=== PATIENT | male | born 1965 | race Caucasian/White ===

== ENCOUNTER 2019-11-01 19:10 | Emergency (ER) | payer MEDICAID, OTHER ==
[~2019-11-01] VITALS: Ht 172.7 cm; Wt 64.5 kg
[2019-11-01] MEDS ORDERED: LIDOcaine 1% W/epiNEPHrine 1:200,000 10ml vial IJ ONE (20:20)
[2019-11-01] MEDS ORDERED: TETanus/Pertussis (Acell)/Diphther VAC/PF (Tdap-Adult) 0.5ml syringe IMVAC ONE (20:20)
[2019-11-01] MEDS ORDERED: bacitracin 15gm ointment TP ONE (20:20)
--- NOTE | 2019-11-01 20:42 | NUR ---
LACERACTION SET UP AT BEDSIDE ORDER
--- NOTE | 2019-11-01 20:43 | NUR ---
PIPE TURNER AT BEDSIDE IRRIGATING WOUND WITH NORMAL SALINE . TETINUS GIVEN TO THE RIGHT DELTOID
[2019-11-01 21:42] VITALS: BP 146/82
== END 2019-11-01 21:25 | disposition home or self-care (01) ==
LOC: ER 19:10
DX: S81.812A Laceration without foreign body, left lower leg, initial encounter (principal); I10 Essential (primary) hypertension; X08.8XXA Exposure to other specified smoke, fire and flames, initial encounter; Y93.89 Activity, other specified; Y92.89 Other specified places as the place of occurrence of the external cause; Y99.8 Other external cause status
CPT/HCPCS: 12001; 90471; 90715; 99283

== ENCOUNTER 2020-12-08 22:35 | Emergency (ER) | payer MEDICAID ==
[~2020-12-08] VITALS: Ht 172.7 cm; Wt 65.9 kg
[2020-12-08 22:38] VITALS: BP 194/110
[2020-12-08] MEDS ORDERED: LIDOcaine 1% W/epiNEPHrine 1:200,000 10ml vial IJ ONE (22:55)
[2020-12-08] MEDS ORDERED: TETanus/Pertussis (Acell)/Diphther VAC/PF (Tdap-Adult) 0.5ml syringe IMVAC ONE (22:55)
[2020-12-08] MEDS ORDERED: LIDOcaine 1% W/epiNEPHrine 1:100,000 20ml vial IJ ONE (23:00)
== END 2020-12-09 00:14 | disposition home or self-care (01) ==
LOC: ER 22:36
DX: S61.512A Laceration without foreign body of left wrist, initial encounter (principal); I10 Essential (primary) hypertension; Z98.890 Other specified postprocedural states; W45.8XXA Other foreign body or object entering through skin, initial encounter; Y93.89 Activity, other specified; Y92.89 Other specified places as the place of occurrence of the external cause; Y99.8 Other external cause status
CPT/HCPCS: 12002; 99282

== ENCOUNTER 2020-12-21 21:03 | Emergency (ER) | payer MEDICAID ==
[~2020-12-21] VITALS: Ht 172.7 cm; Wt 76.0 kg
[2020-12-21 21:08] VITALS: BP 166/101
[2020-12-21] MEDS ORDERED: DOXY100C76 PO (21:14)
--- NOTE | 2020-12-21 21:15 | NUR ---
SUTURES REMOVED X4
== END 2020-12-21 21:29 | disposition home or self-care (01) ==
LOC: ER 21:04
DX: S61.211D Laceration without foreign body of left index finger without damage to nail, subsequent encounter (principal); I10 Essential (primary) hypertension; Z98.890 Other specified postprocedural states; Z79.2 Long term (current) use of antibiotics; X58.XXXD Exposure to other specified factors, subsequent encounter
CPT/HCPCS: 99283

== ENCOUNTER 2021-04-10 21:30 | Emergency (ER) | payer MEDICAID, OTHER ==
[~2021-04-10] VITALS: Ht 172.7 cm; Wt 68.2 kg
[2021-04-10 22:55] LABS: BASOPHILS % (AUTO) 0.3 % (0-1); EOSINOPHILS # (AUTO) 0.1 X10'3 (0-0.9); EOSINOPHILS % (AUTO) 1.1 % (0-6); HEMATOCRIT 44.3 % (42.0-52.0); HEMOGLOBIN 15.2 g/dl (14.0-17.9); LYMPHOCYTES # (AUTO) 0.3 X10'3 (1.1-4.8); LYMPHOCYTES % (AUTO) 6.5 % (21-51); MEAN CORPUSCULAR HEMOGLOBIN 31.4 PG (27.0-31.0); MEAN CORPUSCULAR HGB CONC 34.4 g/dL (33.0-36.5); MEAN CORPUSCULAR VOLUME 91.2 FL (78-98); MEAN PLATELET VOLUME 7.9 FL (7.4-10.4); MONOCYTES # (AUTO) 0.8 X10'3 (0-0.9); NEUTROPHILS # (AUTO) 3.5 X10'3 (1.8-7.7); NEUTROPHILS % (AUTO) 74.1 % (42-75); PLATELET COUNT 157 X10'3 (140-440); RED BLOOD COUNT 4.86 X10'6 (4.70-6.10); RED CELL DISTRIBUTION WIDTH 13.5 % (11.5-14.5); WHITE BLOOD COUNT 4.7 X10'3 (4.5-11.0)
[2021-04-10 23:00] LABS: ALBUMIN 3.8 G/DL (3.4-5.0); ANION GAP 8 (8-16); BLOOD UREA NITROGEN 17 MG/DL (7-18); BUN/CREATININE RATIO 15.9 (5.4-32.0); CALCIUM 8.9 MG/DL (8.5-10.1); CHLORIDE 100 MMOL/L (99-107); CREATININE 1.07 MG/DL (0.60-1.10); GLUCOSE 137 MG/DL (70-104); POTASSIUM 4.3 MMOL/L (3.5-5.1); SODIUM 136 MMOL/L (135-145); TOTAL CARBON DIOXIDE 27.9 MMOL/L (24-32); eGFR 72 ML/MIN
[2021-04-10 23:28] LABS: PLATELET ESTIMATE NORMAL; TOTAL CELLS COUNTED 100
[2021-04-10 23:38] VITALS: BP 156/97
== END 2021-04-10 23:42 | disposition home or self-care (01) ==
LOC: ER 21:32
DX: B34.9 Viral infection, unspecified (principal); Z20.822 Contact with and (suspected) exposure to COVID-19; I10 Essential (primary) hypertension; Z98.890 Other specified postprocedural states
CPT/HCPCS: 36415; 71045; 80048; 85007; 85025; 87635; 99284; C9803

== ENCOUNTER 2023-07-15 18:39 | Emergency (ER) | payer MEDICAID, OTHER ==
[~2023-07-15] VITALS: Ht 172.7 cm; Wt 65.9 kg
[2023-07-15 18:48] VITALS: BP 188/112; PULSE 92; O2SAT 99
[2023-07-16] MEDS: sulfamethoxazole/trimethoprim DS (800/160mg) tablet PO ONE (00:05)
[2023-07-16] MEDS: bacitracin 15gm ointment TP ONE (00:06)
[2023-07-16] MEDS: LIDOcaine 1% W/epiNEPHrine 1:100,000 20ml vial IJ ONE (00:06)
[2023-07-16] MEDS: TETanus/Pertussis (Acell)/Diphther VAC/PF (Tdap-Adult) 0.5ml syringe IMVAC ONE (00:10)
[2023-07-16] MEDS: ondansetron 4mg rapidly disintigrating tab PO ONE (00:12)
[2023-07-16 00:15] VITALS: RESP 16
[2023-07-16] MEDS ORDERED: SULF1TAB49 PO (01:09)
== END 2023-07-16 01:26 | disposition home or self-care (01) ==
LOC: ER 18:40
DX: S71.121A Laceration with foreign body, right thigh, initial encounter (principal); I10 Essential (primary) hypertension; W26.8XXA Contact with other sharp object(s), not elsewhere classified, initial encounter; Y93.89 Activity, other specified; Y92.89 Other specified places as the place of occurrence of the external cause; Y99.8 Other external cause status
CPT/HCPCS: 10120; 73552; 90471; 90715; 99285; J3490; 12001

== ENCOUNTER 2025-04-03 08:16 | Emergency (ER) | payer MEDICAID ==
[~2025-04-03] VITALS: Ht 172.7 cm; Wt 70.0 kg
[2025-04-03] MEDS: bacitracin 15gm ointment TP ONE (09:40)
[2025-04-03] MEDS ORDERED: SULF1TAB49 PO (09:57)
--- NOTE | 2025-04-03 09:57 | Physician Documentation ---
History of Present Illness ~ Chief Complaint: Wound Stated Complaint: WOUND ON LEG Time Seen by MD: 09:08 Primary Medical Doctor: NO PCP Source: patient Mode of Arrival: POV Exam Limitations: no limitations HPI 59-year-old with complaints of draining wound to right lateral thigh x2 days. Concerned he needs antibiotics for infection. Patient states that he was cutting wood it could be from hitting a piece of wood when stacking it. Unknown triggering event. No fevers or other associated symptoms Tetanus within 5 years?: No Medication Reconciliation Allergies: Coded Allergies: No Known Allergies (Unverified , 04/03/25) Past Medical History Past Medical History: No Pertinent History, Hypertension, Hernia Past Surgical History: noncontributory Other Past Surgical History: Hernia repair Alcohol Use: None Drug Use: none Lives In: Home Occupation: employed Review of Systems All Other Systems at this time: Reviewed and Negative Integumentary: Reports: see HPI Physical Exam Vital Signs: RN Vital Signs have been reviewed: Yes, Temperature: 97.2, Source: Temporal, Heart Rate: 68, Respiratory Rate: 16, BP: 183/96, Pulse Oximetry: 93, Weight: 70.000 Oxygen Flow Rate: 0 Physical Exam General: Alert, no apparent distress. HEENT: moist mucous membranes. Neck: Full range of motion. Respiratory: No respiratory distress speaking in full sentences Chest: No accessory muscle use. Cardiovascular: Appears well perfused Neurologic: Oriented x4. Psychiatric: Normal mood and affect. Skin: 3 cm area of induration and erythema to the lateral distal aspect of the left thigh small pustule area 1 cm in diameter draining. No fluctuance no streaking Progress Results/Orders Results/Orders Completed Orders - JAIDA NOEL NP Bacitracin Ointment (Bacitracin Ointment (04/03/25 09:35) Vital Signs 04/03/25 08:29 Temp 97.2 Pulse 68 Resp 16 B/P (MAP) 183/96 Pulse Ox 93 O2 Flow Rate 0 Medical Decision Making Additional information obtaine: N/A Findings Wound with induration but without fluctuance no I and D performed antibiotics and bacitracin discussed warm compresses since it already drained in the shower. Differential Dx:Considerations: Include: Abscess, Cellulitis Departure Time of Disposition: 09:56 Disposition: 01 HOME / SELF CARE / HOMELESS Impression: Primary Impression: Wound abscess Condition: Stable Discharge Instructions: Skin Abscess Additional Instructions: Antibiotics as prescribed and follow up with primary care in 3-5 days. Referrals: NO PRIMARY CARE PROVIDER (PCP) Prescriptions Sulfamethoxazole/Trimethoprim (Bactrim Ds Tablet) 800 Mg-160 Mg Tablet 1 TAB PO Q12H for 10 Days, #20 TAB Prov: JAIDA NOEL NP 04/03/25 Education Educated: Patient Educated regarding: diagnosis, treatment, need for follow up Signature Scribe Signature: No scribe Attestation: The note accurately reflects work and decisions made by me.Jaida KIRAN 04/03/25 09:57 JAIDA NOEL NP Apr 03, 2025 09:57
[2025-04-03 10:09] VITALS: BP 180/89; PULSE 83; RESP 18; TEMP 97.2; O2SAT 99
== END 2025-04-03 10:03 | disposition home or self-care (01) ==
LOC: ER 08:17
DX: L02.415 Cutaneous abscess of right lower limb (principal); Z98.890 Other specified postprocedural states
CPT/HCPCS: 99283